=== PATIENT | female | born 1985 | race Caucasian/White ===

== ENCOUNTER 2018-04-05 11:17 | Emergency (ER) | payer BC, OTHER ==
[2018-04-05] MEDS ORDERED: KETOROLAC TROMETHAMINE INJ/PF 30 MG/1 ML SDV IV ONE (11:49)
[2018-04-05] MEDS ORDERED: DIPHENHYDRAMINE HCL 50 MG/ML VIAL IV ONE (11:49)
[2018-04-05] MEDS ORDERED: ONDANSETRON HCL INJ/PF 4 MG/2 ML SDV IV ONE (11:49)
[2018-04-05] MEDS ORDERED: NORMAL SALINE 1000 ML 1,000 ML IV ONE (11:49)
--- NOTE | 2018-04-05 11:53 | ER Document Report ---
ED GI/ - General Mode of Arrival: Ambulatory Information source: Patient TRAVEL OUTSIDE OF THE [place] IN LAST 30 DAYS: No <BHAVIN BASS - Last Filed: 04/05/18 11:49> <DELONTE EVANS - Last Filed: 04/05/18 14:23> - General Chief Complaint: Nausea/Vomiting Stated Complaint: STOMACH PAIN/VOMITING Time Seen by Provider: 04/05/18 11:43 Notes: 33-year-old female who presents to the emergency department today with complaints of nausea and vomiting. Patient states she drank heavily last night which she does not usually do. Patient states she woke up at 0900 this morning not feeling well and her vomiting began about 2 hours later. Patient states that she stopped drinking last night around midnight. Patient denies any abdom inal pain. (BHAVIN BASS) - Related Data Allergies/Adverse Reactions: No Known Allergies Allergy (Verified 04/05/18 11:18) Past Medical History - General Information source: Patient - Social History Smoking Status: Current Every Day Smoker Cigarette use (# per day): Yes Frequency of alcohol use: Social Lives with: Family Family History: Reviewed & Not Pertinent Psychiatric Medical History: Reports: Hx Anxiety Past Surgical History: Reports: Hx Section - x2 <BHAVIN BASS - Last Filed: 04/05/18 11:49> Review of Systems - Review of Systems Constitutional: No symptoms reported EENT: No symptoms reported Cardiovascular: No symptoms reported Respiratory: No symptoms reported Gastrointestinal: See HPI, Nausea, Vomiting Genitourinary: No symptoms reported Female Genitourinary: No symptoms reported Musculoskeletal: No symptoms reported Skin: No symptoms reported Hematologic/Lymphatic: No symptoms reported Neurological/Psychological: No symptoms reported -: Yes All other systems reviewed and negative <BHAVIN BASS - Last Filed: 04/05/18 11:49> Physical Exam <BHAVIN BASS - Last Filed: 04/05/18 11:49> - Vital signs Vitals: Temp Pulse Resp BP Pulse Ox 98.6 F 93 14 130/93 H 99 04/05/18 11:20 04/05/18 11:20 04/05/18 11:20 04/05/18 11:20 04/05/18 11:20 - Notes Notes: Physical Exam: General: Alert, appears well. HEENT: Normocephalic. Atraumatic. PERRL. Extraocular movements intact. Oropharynx clear. Dry oral mucosa. Neck: Supple. Non-tender. Respiratory: No respiratory distress. Clear and equal breath sounds bilaterally. Cardiovascular: Regular rate and rhythm. Abdominal: Normal Inspection. Non-tender. No distension. Normal Bowel Sounds. Back: Non-tender. No deformity or step off. Extremities: Moves all four extremities. Upper extremities: Normal inspection. Normal ROM. Lower extremities: Normal inspection. No edema. Normal ROM. Neurological: Normal cognition. AAOx4. Normal speech. Psychological: Normal affect. Normal Mood. Skin: Warm. Dry. Normal color. (BHAVIN BASS) Course - Laboratory Result Diagrams: 04/05/18 12:13 04/05/18 12:13 <DELONTE EVANS - Last Filed: 04/05/18 14:23> - Re-evaluation Re-evalutation: 04/05/18 14:22 Patient reports she feels much better at this time and is ready to go home. She is smiling and comfortable. (DELONTE EVANS) - Vital Signs Vital signs: Temp Pulse Resp BP Pulse Ox 98.6 F 93 14 130/93 H 99 04/05/18 11:20 04/05/18 11:20 04/05/18 11:20 04/05/18 11:20 04/05/18 11:20 - Laboratory Laboratory results interpreted by me: 04/05/18 04/05/18 12:13 12:13 Eosinophils % 6.9 H AST 48 H ALT 63 H Alkaline Phosphatase 36 L Discharge <BHAVIN BASS - Last Filed: 04/05/18 11:49> <DELONTE EVANS - Last Filed: 04/05/18 14:23> - Discharge Clinical Impression: Hangover without complication Nausea and vomiting Qualifiers: Vomiting type: unspecified Vomiting Intractability: non-intractable Qualified Code(s): R11.2 - Nausea with vomiting, unspecified Condition: Stable Disposition: HOME, SELF-CARE Additional Instructions: Drink plenty of fluids today. Take Tylenol and ibuprofen for headache if needed. Get plenty of rest and sleep today. Follow-up with your primary care provider if not improving. RETURN TO THE EMERGENCY ROOM IF ANY NEW OR WORSENING SYMPTOMS. Referrals: YUMKIO BOTELLO MD [ACTIVE STAFF] - Follow up as needed Scribe Attestation: 04/05/18 12:00 I personally performed the services described in the documentation, reviewed and edited the documentation which was dictated to the scribe in my presence, and it accurately records my words and actions. (DELONTE EVANS) Scribe Documentation - Scribe Written by Scribe:: Raj Lim, 04/05/2018 [id number] acting as scribe for :: Libra <BHAVIN BASS - Last Filed: 04/05/18 11:49>
[2018-04-05 12:37] LABS: ABSOLUTE EOSINOPHILS # (AUTO) 0.4 10^3/uL (0.0-0.6); ABSOLUTE LYMPHOCYTES (AUTO) 1.9 10^3/uL (0.5-4.7); ABSOLUTE MONOCYTES (AUTO) 0.4 10^3/uL (0.1-1.4); ABSOLUTE NEUT (AUTO) 3.3 10^3/uL (1.7-8.2); BASOPHILS % (AUTO) 0.3 % (0-2); EOSINOPHILS % (AUTO) 6.9 % (0-6); HEMATOCRIT 41.1 % (36.0-47.0); HEMOGLOBIN 14.1 g/dL (12.0-15.5); MEAN CORPUSCULAR HGB CONC 34.2 g/dL (32.0-36.0); MEAN CORPUSCULAR VOLUME 88 fl (80-97); MONOCYTES % (AUTO) 6.6 % (3-13); PLATELET COUNT 238 10^3/uL (150-450); RED BLOOD COUNT 4.69 10^6/uL (3.72-5.28); RED CELL DISTRIBUTION WIDTH 12.7 % (11.5-14.0); SEGMENTED NEUTROPHILS % (AUTO) 54.2 % (42-78); TOTAL CELLS COUNTED % (AUTO) 100 %; WHITE BLOOD COUNT 6.1 10^3/uL (4.0-10.5)
[2018-04-05 12:41] LABS: ALANINE AMINOTRANSFERASE 63 U/L (9-52); ALBUMIN 4.3 g/dL (3.5-5.0); ALKALINE PHOSPHATASE 36 U/L (38-126); ANION GAP 9 (5-19); ASPARTATE AMINO TRANSFERASE 48 U/L (14-36); BILIRUBIN,DIRECT 0.2 mg/dL (0.0-0.4); BILIRUBIN,TOTAL 0.3 mg/dL (0.2-1.3); BLOOD UREA NITROGEN 12 mg/dL (7-20); CALCIUM 8.9 mg/dL (8.4-10.2); CARBON DIOXIDE 28 mmol/L (22-30); CHLORIDE 107 mmol/L (98-107); GLUCOSE 96 mg/dL (75-110); POTASSIUM 4.3 mmol/L (3.6-5.0); SODIUM 143.6 mmol/L (137-145); TOTAL PROTEIN 6.9 g/dL (6.3-8.2)
[2018-04-05 12:45] LABS: ALCOHOL < 10 mg/dL (NONE DETECTED)
[2018-04-05] MEDS ORDERED: DEXTROSE 5%-LACTATED RINGERS 1,000 ML IV ONE (12:56)
[2018-04-05 14:30] VITALS: BP 128/89
== END 2018-04-05 14:30 | disposition home or self-care (01) ==
LOC: ER 11:17
DX: R11.2 Nausea with vomiting, unspecified (principal); R10.9 Unspecified abdominal pain; F10.129 Alcohol abuse with intoxication, unspecified; F17.210 Nicotine dependence, cigarettes, uncomplicated
CPT/HCPCS: 99284; 96361; 96374; 96375; 36415; 80307; 85025; 80053; J1200; J1885; J2405; J7030